=== PATIENT | female | born 1960 | race Caucasian/White ===

== ENCOUNTER 2023-06-22 18:49 | Inpatient (IN) | payer OTHER ==
[~2023-06-22] VITALS: Ht 162.6 cm; Wt 162.9 kg
[2023-06-22] MEDS ORDERED: AMIODARONE 900MG 900 MG in Premix Bag 1 BAG IV SCH (19:30)
[2023-06-22] MEDS ORDERED: AMIODARONE HCL 150 MG/100 ML BAG IV ONE (19:30)
[2023-06-22 20:11] LABS: BASOPHILS # (AUTO) 0.1 (0.0-0.1); BASOPHILS % 0.8 % (0.0-1.0); EOSINOPHILS # (AUTO) 0.1 (0.0-0.4); EOSINOPHILS % 1.4 % (0.0-6.0); HEMATOCRIT 42.7 % (34.2-44.1); HEMOGLOBIN 13.3 g/dL (12.0-16.0); LYMPHOCYTES # (AUTO) 1.7 (1.0-3.2); LYMPHOCYTES % 18.2 % (18.0-39.1); MEAN CORPUSCULAR HEMOGLOBIN 26.5 pg (28-32); MEAN CORPUSCULAR HGB CONC 31.1 g/dL (31-35); MEAN CORPUSCULAR VOLUME 85.1 fL (81-99); MONOCYTES # (AUTO) 0.7 (0.2-0.8); MONOCYTES % 7.6 % (4.4-11.3); NEUTROPHILS # (AUTO) 6.7 (2.1-6.9); NEUTROPHILS % 71.7 % (38.7-80.0); PLATELET COUNT 200 x10e3/uL (140-360); RED BLOOD COUNT 5.02 x10e6/uL (3.6-5.1); RED CELL DISTRIBUTION WIDTH 18.2 % (11.7-14.4); WHITE BLOOD COUNT 9.29 x10e3/uL (4.8-10.8)
[2023-06-22] MEDS ORDERED: AMIODARONE 900MG 500 ML IV ONE (20:12)
[2023-06-22 20:26] LABS: ALBUMIN 3.7 g/dL (3.5-5.0); ALBUMIN/GLOBULIN RATIO 1.3 (0.8-2.0); ANION GAP 15.1 mmol/L (8-16); BILIRUBIN,TOTAL 0.4 mg/dL (0.2-1.2); CALCIUM 8.6 mg/dL (8.4-10.2); CREATININE, SERUM 0.91 mg/dL (0.57-1.11); POTASSIUM 4.1 mmol/L (3.5-5.1); TOTAL PROTEIN 6.6 g/dL (6.5-8.1)
[2023-06-22 20:49] LABS: INR 1.15; PROTHROMBIN TIME 14.9 seconds (11.9-14.5)
[2023-06-22 20:50] LABS: PARTIAL THROMBOPLASTIN TIME 27.2 seconds (23.8-35.5)
[2023-06-22] MEDS ORDERED: ENOXAPARIN SODIUM INJ 100 MG/ML SYR SC STA (20:52)
[2023-06-22] MEDS ORDERED: ONDANSETRON HCL INJ 2MG/ML 2ML 2 MG/ML VIAL IV PRN (21:00)
[2023-06-22] MEDS: INSULIN REGULAR, HUMAN 100 UNIT/1 ML SQ SCH (21:00)
[2023-06-22] MEDS ORDERED: SODIUM CHLORIDE FLUSH 10 ML SYR INJ PRN (21:00)
[2023-06-22] MEDS ORDERED: DEXTROSE 50% SYRINGE 50 ML IV PRN (21:00)
[2023-06-22 22:33] LABS: TROPONIN I 0.025 ng/mL (0-0.300)
[2023-06-22 22:50] VITALS: PULSE 126; RESP 22; TEMP 98.1; O2SAT 98
[2023-06-22 23:00] VITALS: BP 114/94; PULSE 130; RESP 22; TEMP 98.1; O2SAT 98
[2023-06-22 23:05] VITALS: PULSE 73; RESP 23; O2SAT 99
[2023-06-22 23:15] VITALS: PULSE 102; RESP 21; O2SAT 99
[2023-06-22 23:24] VITALS: BP 111/77; PULSE 123; RESP 11; O2SAT 98
[2023-06-23] VITALS (35 sets, daily range): BP systolic 81–136; BP diastolic 39–107; PULSE 32–127; RESP 12–27; TEMP 97.9–98.8; O2SAT 93–100
[2023-06-23 05:55] LABS: CHOL/HDL RATIO 3.3 (3.0-3.6)
[2023-06-23 06:01] LABS: TROPONIN I 0.022 ng/mL (0-0.300)
[2023-06-23] MEDS: INSULIN REGULAR, HUMAN 100 UNIT/1 ML SQ SCH ×4 (07:30→21:00)
[2023-06-23 11:04] LABS: BASOPHILS # (AUTO) 0.1 (0.0-0.1); BASOPHILS % 0.7 % (0.0-1.0); EOSINOPHILS # (AUTO) 0.2 (0.0-0.4); EOSINOPHILS % 1.8 % (0.0-6.0); HEMATOCRIT 40.9 % (34.2-44.1); HEMOGLOBIN 12.1 g/dL (12.0-16.0); LYMPHOCYTES # (AUTO) 1.9 (1.0-3.2); LYMPHOCYTES % 22.9 % (18.0-39.1); MEAN CORPUSCULAR HEMOGLOBIN 26.5 pg (28-32); MEAN CORPUSCULAR HGB CONC 29.6 g/dL (31-35); MEAN CORPUSCULAR VOLUME 89.7 fL (81-99); MONOCYTES # (AUTO) 0.7 (0.2-0.8); MONOCYTES % 8.6 % (4.4-11.3); NEUTROPHILS # (AUTO) 5.4 (2.1-6.9); NEUTROPHILS % 65.9 % (38.7-80.0); PLATELET COUNT 183 x10e3/uL (140-360); RED BLOOD COUNT 4.56 x10e6/uL (3.6-5.1); RED CELL DISTRIBUTION WIDTH 17.2 % (11.7-14.4); WHITE BLOOD COUNT 8.16 x10e3/uL (4.8-10.8)
[2023-06-23 11:15] LABS: ANION GAP 14.8 mmol/L (8-16); CALCIUM 8.3 mg/dL (8.4-10.2); CREATININE, SERUM 0.88 mg/dL (0.57-1.11); POTASSIUM 3.8 mmol/L (3.5-5.1)
[2023-06-23] MEDS ORDERED: FUROSEMIDE INJ 10 MG/ML 4 ML VIAL IV ONE (12:15)
[2023-06-23 13:01] LABS: CLARITY,URINE CLEAR (CLEAR); COLOR,URINE YELLOW (YELLOW)
[2023-06-23 13:02] LABS: BILIRUBIN,URINE NEGATIVE (NEGATIVE); GLUCOSE, URINE NEGATIVE (NEGATIVE); KETONES,URINE NEGATIVE (NEGATIVE); LEUKOCYTE ESTERASE ,URINE NEGATIVE (NEGATIVE); NITRITE,URINE NEGATIVE (NEGATIVE); PH,URINE 5.5 (5 - 7); PROTEIN,URINE DIPSTICK TRACE (NEGATIVE); URINE UROBILINOGEN 0.2 mg/dL (0.2 - 1)
[2023-06-23] MEDS: METOPROLOL SUCCINATE 50 MG TAB XL PO SCH (13:09)
[2023-06-23 13:14] LABS: BACTERIA,URINE MANY /HPF
[2023-06-23 13:15] LABS: EPITHELIAL CELLS,URINE MANY /LPF
[2023-06-23] MEDS: AMIODARONE HCL 200 MG TAB PO SCH (17:23)
[2023-06-23] MEDS: APIXABAN 5 MG TABLET PO SCH (17:23)
[2023-06-23] MEDS: ALBUTEROL/IPRATROPIUM 3 ML NEB NEB SCH ×2 (21:30→21:40)
[2023-06-24] VITALS (32 sets, daily range): BP systolic 45–125; BP diastolic 15–98; PULSE 61–129; RESP 12–26; TEMP 97.6–98.8; O2SAT 90–100
[2023-06-24] MEDS: ALBUTEROL/IPRATROPIUM 3 ML NEB NEB SCH ×6 (03:13→22:34)
[2023-06-24 06:53] LABS: BASOPHILS # (AUTO) 0.1 (0.0-0.1); BASOPHILS % 0.5 % (0.0-1.0); EOSINOPHILS # (AUTO) 0.1 (0.0-0.4); HEMATOCRIT 41.7 % (34.2-44.1); HEMOGLOBIN 12.3 g/dL (12.0-16.0); LYMPHOCYTES # (AUTO) 1.9 (1.0-3.2); LYMPHOCYTES % 16.7 % (18.0-39.1); MEAN CORPUSCULAR HGB CONC 29.5 g/dL (31-35); MEAN CORPUSCULAR VOLUME 88.2 fL (81-99); MONOCYTES % 9.1 % (4.4-11.3); NEUTROPHILS # (AUTO) 8.2 (2.1-6.9); NEUTROPHILS % 72.4 % (38.7-80.0); PLATELET COUNT 179 x10e3/uL (140-360); RED BLOOD COUNT 4.73 x10e6/uL (3.6-5.1); RED CELL DISTRIBUTION WIDTH 16.9 % (11.7-14.4); WHITE BLOOD COUNT 11.27 x10e3/uL (4.8-10.8)
[2023-06-24 07:15] LABS: ALBUMIN 3.3 g/dL (3.5-5.0); ALBUMIN/GLOBULIN RATIO 1.1 (0.8-2.0); ANION GAP 12.8 mmol/L (8-16); BILIRUBIN,TOTAL 0.7 mg/dL (0.2-1.2); CALCIUM 8.6 mg/dL (8.4-10.2); CREATININE, SERUM 1.06 mg/dL (0.57-1.11); POTASSIUM 3.8 mmol/L (3.5-5.1); TOTAL PROTEIN 6.2 g/dL (6.5-8.1)
[2023-06-24] MEDS: INSULIN REGULAR, HUMAN 100 UNIT/1 ML SQ SCH ×4 (07:30→20:41)
[2023-06-24 07:36] LABS: THYROID STIMULATING HORMONE 0.871 uIU/mL (0.350-4.940)
[2023-06-24] MEDS: APIXABAN 5 MG TABLET PO SCH ×2 (08:29→16:47)
[2023-06-24] MEDS: AMIODARONE HCL 200 MG TAB PO SCH ×2 (08:29→16:48)
[2023-06-24] MEDS: FUROSEMIDE 40 MG TAB PO SCH (08:30)
[2023-06-24] MEDS: METOPROLOL SUCCINATE 50 MG TAB XL PO SCH (08:30)
[2023-06-24] MEDS ORDERED: AMIODARONE HCL 200 MG TAB PO SCH (09:00)
[2023-06-24] MEDS: METOPROLOL SUCCINATE 50 MG TAB XL PO ONE ×2 (12:43→16:18)
[2023-06-25] VITALS (11 sets, daily range): BP systolic 88–146; BP diastolic 59–90; PULSE 77–120; RESP 15–25; TEMP 98.1–98.4; O2SAT 95–98
[2023-06-25] MEDS: ALBUTEROL/IPRATROPIUM 3 ML NEB NEB SCH ×2 (03:21→22:11)
[2023-06-25] MEDS: APIXABAN 5 MG TABLET PO SCH ×2 (08:54→17:27)
[2023-06-25] MEDS: AMIODARONE HCL 200 MG TAB PO SCH ×2 (08:55→10:30)
[2023-06-25] MEDS: FUROSEMIDE 40 MG TAB PO SCH (08:55)
[2023-06-25] MEDS: METOPROLOL SUCCINATE 50 MG TAB XL PO SCH (08:56)
[2023-06-25] MEDS: INSULIN REGULAR, HUMAN 100 UNIT/1 ML SQ SCH ×4 (08:57→21:00)
[2023-06-25] MEDS ORDERED: ONDANSETRON HCL 4 MG ORAL DISINTEGRATING TAB PO PRN (11:15)
[2023-06-26] VITALS (12 sets, daily range): BP systolic 99–127; BP diastolic 66–84; PULSE 58–110; RESP 18–22; TEMP 97.7–98.8; O2SAT 93–100
[2023-06-26] MEDS: ALBUTEROL/IPRATROPIUM 3 ML NEB NEB SCH ×7 (02:03→22:58)
[2023-06-26 08:09] LABS: BASOPHILS # (AUTO) 0.1 (0.0-0.1); EOSINOPHILS # (AUTO) 0.3 (0.0-0.4); EOSINOPHILS % 3.4 % (0.0-6.0); HEMATOCRIT 46.4 % (34.2-44.1); HEMOGLOBIN 14.2 g/dL (12.0-16.0); LYMPHOCYTES # (AUTO) 1.5 (1.0-3.2); LYMPHOCYTES % 16.6 % (18.0-39.1); MEAN CORPUSCULAR HEMOGLOBIN 26.7 pg (28-32); MEAN CORPUSCULAR HGB CONC 30.6 g/dL (31-35); MEAN CORPUSCULAR VOLUME 87.2 fL (81-99); MONOCYTES # (AUTO) 0.8 (0.2-0.8); MONOCYTES % 9.3 % (4.4-11.3); NEUTROPHILS # (AUTO) 6.1 (2.1-6.9); NEUTROPHILS % 69.5 % (38.7-80.0); PLATELET COUNT 165 x10e3/uL (140-360); RED BLOOD COUNT 5.32 x10e6/uL (3.6-5.1); RED CELL DISTRIBUTION WIDTH 16.5 % (11.7-14.4); WHITE BLOOD COUNT 8.74 x10e3/uL (4.8-10.8)
[2023-06-26] MEDS: FUROSEMIDE 40 MG TAB PO SCH (08:26)
[2023-06-26] MEDS: APIXABAN 5 MG TABLET PO SCH ×2 (08:26→16:24)
[2023-06-26] MEDS: AMIODARONE HCL 200 MG TAB PO SCH (08:26)
[2023-06-26] MEDS: INSULIN REGULAR, HUMAN 100 UNIT/1 ML SQ SCH ×4 (08:35→21:16)
[2023-06-26 08:41] LABS: ANION GAP 15.1 mmol/L (8-16); CALCIUM 8.7 mg/dL (8.4-10.2); CREATININE, SERUM 1.03 mg/dL (0.57-1.11); MAGNESIUM 2.1 MG/DL (1.3-2.1); POTASSIUM 4.1 mmol/L (3.5-5.1)
[2023-06-26] MEDS: METOPROLOL SUCCINATE 50 MG TAB XL PO SCH (08:56)
[2023-06-27] VITALS (13 sets, daily range): BP systolic 97–127; BP diastolic 62–91; PULSE 53–121; RESP 17–20; TEMP 97.8–98.7; O2SAT 95–100
[2023-06-27] MEDS: ALBUTEROL/IPRATROPIUM 3 ML NEB NEB SCH ×6 (02:21→23:59)
[2023-06-27] MEDS: INSULIN REGULAR, HUMAN 100 UNIT/1 ML SQ SCH ×4 (07:30→22:13)
[2023-06-27] MEDS: METOPROLOL SUCCINATE 50 MG TAB XL PO SCH ×3 (09:00→17:21)
[2023-06-27] MEDS: FUROSEMIDE 40 MG TAB PO SCH (09:05)
[2023-06-27] MEDS: AMIODARONE HCL 200 MG TAB PO SCH (09:05)
[2023-06-27] MEDS: APIXABAN 5 MG TABLET PO SCH ×2 (09:05→17:20)
[2023-06-28] VITALS (12 sets, daily range): BP systolic 92–125; BP diastolic 60–93; PULSE 75–122; RESP 18–20; TEMP 97.3–98.5; O2SAT 92–100
[2023-06-28] MEDS: ALBUTEROL/IPRATROPIUM 3 ML NEB NEB SCH ×6 (07:00→23:06)
[2023-06-28] MEDS: INSULIN REGULAR, HUMAN 100 UNIT/1 ML SQ SCH ×4 (07:30→21:26)
[2023-06-28] MEDS: AMIODARONE HCL 200 MG TAB PO SCH (09:49)
[2023-06-28] MEDS: FUROSEMIDE 40 MG TAB PO SCH (09:50)
[2023-06-28] MEDS: METOPROLOL SUCCINATE 50 MG TAB XL PO SCH ×2 (09:50→17:39)
[2023-06-28] MEDS: APIXABAN 5 MG TABLET PO SCH ×2 (09:50→17:39)
[2023-06-29] VITALS (9 sets, daily range): BP systolic 99–133; BP diastolic 63–97; PULSE 58–105; RESP 18–22; TEMP 97–98.2; O2SAT 92–100
[2023-06-29] MEDS: ALBUTEROL/IPRATROPIUM 3 ML NEB NEB SCH ×4 (03:00→13:58)
[2023-06-29] MEDS: INSULIN REGULAR, HUMAN 100 UNIT/1 ML SQ SCH ×2 (07:30→12:07)
[2023-06-29] MEDS: AMIODARONE HCL 200 MG TAB PO SCH (10:26)
[2023-06-29] MEDS: APIXABAN 5 MG TABLET PO SCH (10:26)
[2023-06-29] MEDS: METOPROLOL SUCCINATE 50 MG TAB XL PO SCH (10:27)
[2023-06-29] MEDS: FUROSEMIDE 40 MG TAB PO SCH (10:27)
[2023-06-29 12:24] LABS: BASOPHILS # (AUTO) 0.1 (0.0-0.1); BASOPHILS % 1.2 % (0.0-1.0); EOSINOPHILS # (AUTO) 0.3 (0.0-0.4); EOSINOPHILS % 3.7 % (0.0-6.0); HEMATOCRIT 47.2 % (34.2-44.1); HEMOGLOBIN 14.4 g/dL (12.0-16.0); LYMPHOCYTES # (AUTO) 1.8 (1.0-3.2); LYMPHOCYTES % 21.2 % (18.0-39.1); MEAN CORPUSCULAR HEMOGLOBIN 26.4 pg (28-32); MEAN CORPUSCULAR HGB CONC 30.5 g/dL (31-35); MEAN CORPUSCULAR VOLUME 86.6 fL (81-99); MONOCYTES # (AUTO) 0.8 (0.2-0.8); MONOCYTES % 8.8 % (4.4-11.3); NEUTROPHILS # (AUTO) 5.6 (2.1-6.9); NEUTROPHILS % 64.9 % (38.7-80.0); PLATELET COUNT 210 x10e3/uL (140-360); RED BLOOD COUNT 5.45 x10e6/uL (3.6-5.1); RED CELL DISTRIBUTION WIDTH 16.1 % (11.7-14.4); WHITE BLOOD COUNT 8.64 x10e3/uL (4.8-10.8)
[2023-06-29 12:42] LABS: ANION GAP 14.6 mmol/L (8-16); CALCIUM 8.9 mg/dL (8.4-10.2); CREATININE, SERUM 1.15 mg/dL (0.57-1.11); POTASSIUM 3.6 mmol/L (3.5-5.1)
[2023-06-29] MEDS ORDERED: Albuterol/Ipratropium Nebulize NEB (15:03)
[2023-06-29] MEDS ORDERED: FUROSEMIDE40 MG PO (15:03)
[2023-06-29] MEDS ORDERED: ELIQUIS5 MG PO (15:03)
[2023-06-29] MEDS ORDERED: AMIODARONE HCL200 MG PO (15:03)
[2023-06-29] MEDS ORDERED: TOPROL XL50 MG PO (15:03)
[2023-06-29] MEDS ORDERED: COMBIVENT RESPIM4 GM IH (15:04)
== END 2023-06-29 16:57 | disposition home health service (06) | DRG 308 ==
LOC: ER 19:00 → ERHOLD 20:56 → ICU 22:45 → MED/SURG3 06-25 04:04
PROVIDERS: ADMIT Internal Medicine; ATTEND Internal Medicine
DX: I48.91 Unspecified atrial fibrillation (principal); I50.33 Acute on chronic diastolic (congestive) heart failure; J96.21 Acute and chronic respiratory failure with hypoxia; Z68.44 Body mass index [BMI] 60.0-69.9, adult; E66.01 Morbid (severe) obesity due to excess calories; I11.0 Hypertensive heart disease with heart failure; G47.33 Obstructive sleep apnea (adult) (pediatric); Z99.81 Dependence on supplemental oxygen; E11.9 Type 2 diabetes mellitus without complications; H54.61 Unqualified visual loss, right eye, normal vision left eye; H17.9 Unspecified corneal scar and opacity; H91.90 Unspecified hearing loss, unspecified ear; M19.91 Primary osteoarthritis, unspecified site; Z11.52 Encounter for screening for COVID-19; Z71.3 Dietary counseling and surveillance; Z79.899 Other long term (current) drug therapy; Z79.01 Long term (current) use of anticoagulants
CPT/HCPCS: 36415; 71045; 80048; 80053; 80061; 81001; 82550; 82948; 83036; 83735; 83880; 84100; 84443; 84484; 85025; 85610; 85730; 87086; 93005; 93306; 94640; 94799; 99284; J1650; J1940; U0002